=== PATIENT | female | born 1995 | race Two or more races ===

== ENCOUNTER 2016-10-31 08:46 | Outpatient (CLI) | payer MEDICAID ==
[2016-10-31 10:38] LABS: SPECIFIC GRAVITY 1.015 (1.001-1.030); URINE APPEARANCE CLEAR; URINE BILIRUBIN NEGATIVE (NEGATIVE); URINE BLOOD NEGATIVE (NEGATIVE); URINE COLOR YELLOW; URINE GLUCOSE (UA) NEGATIVE (NEGATIVE); URINE LEUKOCYTE ESTERASE TRACE (NEGATIVE); URINE NITRITE NEGATIVE (NEGATIVE); URINE PROTEIN NEGATIVE (NEGATIVE); URINE UROBILINOGEN 1 mg/dL (0-1 mg/dl)
[2016-10-31 10:47] LABS: URINE RBC 0 /hpf
[2016-10-31 10:48] LABS: URINE BACTERIA FEW
[2016-10-31] MEDS ORDERED: MORPHINE SULFATE 10 MG/ML SYRINGE IM ONE (11:40)
== END 2016-10-31 12:40 | disposition home or self-care (01) ==
LOC: FBCOUT 08:46 → FBC 08:47 → FBCOUT 12:40
PROVIDERS: ATTEND Family Medicine
DX: O47.9 False labor, unspecified (principal); Z3A.00 Weeks of gestation of pregnancy not specified
CPT/HCPCS: 96372; 81001; 59025; 81002; J2270; G0463

== ENCOUNTER 2016-11-06 11:25 | Inpatient (IN) | payer MEDICAID ==
[2016-11-06] MEDS ORDERED: IV START KIT ONE (12:03)
[2016-11-06] MEDS ORDERED: OXYTOCIN IN LR 500 ML IV ONE ×2 (12:03→12:04)
[2016-11-06] MEDS ORDERED: OXYTOCIN 10 UNITS/ML VIAL ONE (12:04)
[2016-11-06] MEDS ORDERED: LACTATED RINGERS 1,000 ML ONE (12:04)
[2016-11-06] MEDS ORDERED: LIDOCAINE 1% (PRES FREE) 30 ML VIAL ONE (12:04)
[2016-11-06] MEDS ORDERED: MINERAL OIL 25 ML BOT ONE (12:04)
[2016-11-06] MEDS ORDERED: LIDOCAINE Viscous 2% 15 ML UDCUP ONE (12:04)
[2016-11-06] MEDS ORDERED: PUMP TUBING ONE (12:04)
[2016-11-06] MEDS: LACTATED RINGERS 1,000 ML IV PRN ×2 (12:15→13:37)
[2016-11-06 12:52] LABS: HEMATOCRIT 35.9 % (37.0-47.0); HEMOGLOBIN 11.2 gm/l (12.0-16.0); MEAN CELL VOLUME 77.2 fl (81.0-99.0); MEAN CORPUSCULAR HEMOGLOBIN 24.1 pg (27.0-31.0); MEAN CORPUSCULAR HGB CONC 31.2 g/dl (33.0-37.0); RED CELL DISTRIBUTION WIDTH 16.2 % (11.5-14.5)
[2016-11-06] MEDS ORDERED: EPIDURAL PUMP SET ONE (13:17)
[2016-11-06] MEDS ORDERED: FENTANYL/ROPIVACAINE EPIDURAL 250 ML EP ONE (13:17)
[2016-11-06 13:27] VITALS: BMI 28.7
--- NOTE | 2016-11-06 13:28 | PDOC36 ---
Provider Note Subject: cc: Admission H&P HPI: 21 y.o. year old JOSE A 11/10/2016, by Ultrasound at 39w3d. Presents in active labor. REVIEW OF SYSTEMS GENERAL: No fever or headache EYES: No double or blurry vision. CARDIOVASCULAR: No chest pain. RESPIRATORY: No severe shortness of breath or cough. GASTROINTESTINAL: No nausea or vomiting or right upper quadrant pain. PSYCHIATRIC: No anxiety or depression. PROBLEMS Patient Active Problem List Diagnosis Date Noted Anemia affecting 08/25/2016 04/29/2016 OB HISTORY #: 1, Date: 11/02/10, Sex: Female, Weight: 3.5 kg (7 lb 11.5 oz), GA: 41w0d, Delivery: Vaginal, Spontaneous Delivery, Apgar1: None, Apgar5: None, Living: Yes , Comments: None #: 2, Date: 02/22/15, Sex: Female, Weight: 3.28 kg (7 lb 3.7 oz), GA: 40w0d, Delivery: Vaginal, Spontaneous Delivery, Apgar1: None, Apgar5: None, Living: Yes , Comments: None #: 3, Current Dating: Based On JOSE A GA Dif Comments GA Cyc Lut BC Entered By Date Last Menstrual Period on 01/12/16 (Exact Date) 10/18/16 +3w2d Pt stopped OCP 01/29/16. Unplanned , pt and partner feel good. Yes Rossana Adamson MD 04/29/16 Ultrasound on 04/14/16 11/10/16 Working 10w0d Rossana Adamson MD 04/29/16 Ultrasound on 06/25/16 11/12/16 -2d Anatomy scan at . Grossly normal. Anterior placenta, no previa. Male sex. 20w0d Rossana Adamson MD 06/27/16 PSH No past surgical history SOC HX reports that she has never smoked. She has never used smokeless tobacco. She reports that she does not drink alcohol or use illicit drugs. ALL No Known Allergies MEDICATIONS Current outpatient prescriptions: ferrous sulfate 325 (65 FE) MG tablet, Take 1 tablet (325 mg total) by mouth daily with breakfast., Disp: 30 tablet, Rfl: 11 Vit-Fe Fumarate-FA ( VITAMIN PO), Take by mouth., Disp: , Rfl: PHYSICAL EXAMINATION VITAL SIGNS: BP 113/73 P93 Afebrile Estimated body mass index is 29.60 kg/(m^2) as calculated from the following: Height as of 11/03/16: 1.59 m (5' 2.6"). Weight as of 11/03/16: 74.844 kg (165 lb). Total weight gain is -4.99 kg (-11 lb) FHT: 145 baseline, mod felicia, + accels, no decels Scanlon: q2-3 min SVE: 7/80/-2 GENERAL: No distress CARDIOVASCULAR: Regular rate and rhythm, no murmur RESPIRATORY: Clear to auscultation bilaterally, respiratory effort is nonlabored at rest. GASTROINTESTINAL: Gravid no fundal tenderness LABS & STUDIES A+ Antibody- Rubella Immune Hep B- HIV- GC/Chlamydia- Trep- Hgb 11.2 GBS neg ASSESSMENT 21 y.o. year old JOSE A 11/10/2016, by Ultrasound at 39w3d by PLAN Labor- Expectant management. GBS neg Pain- desires epidural and placing now RH +
[2016-11-06] MEDS ORDERED: ONDANSETRON 4 MG/2ML 2 ML VIAL IV PRN (13:36)
[2016-11-06] MEDS ORDERED: LACTATED RINGERS 1,000 ML IV SCH (13:36)
[2016-11-06] MEDS ORDERED: NALBUPHINE HCL 20 MG/ML AMP IV PRN (13:36)
[2016-11-06] MEDS ORDERED: METOCLOPRAMIDE HCL 5 MG/ML 2ML VIAL IV PRN (13:36)
[2016-11-06] MEDS ORDERED: LACTATED RINGERS 500 ML IV PRN (13:36)
[2016-11-06] MEDS ORDERED: NALOXONE HCL 0.4 MG/ML VIAL IV PRN (13:36)
[2016-11-06] MEDS ORDERED: EPHEDRINE SULFATE 50 MG/ML 1ML VIAL IV PRN (13:36)
[2016-11-06] MEDS ORDERED: DIPHENHYDRAMINE HCL 50 MG/1 ML VIAL IV PRN (13:36)
[2016-11-06] MEDS ORDERED: SODIUM CHLORIDE 0.9% 500 ML IV PRN (13:36)
[2016-11-06] MEDS ORDERED: ROPIVACAINE 0.5% 30 ML VIAL ONE (14:03)
[2016-11-06] MEDS ORDERED: EPIDURAL PROCEDURE TRAY ONE (14:03)
[2016-11-06] MEDS ORDERED: FENTANYL/ROPIVACAINE EPIDURAL 250 ML EP SCH (14:46)
--- NOTE | 2016-11-06 15:34 | PCMDEL ---
Delivery Note - Labor 1st stage (hr/min):: 10 hours 2nd stage (hr/min):: 9 min 3rd stage (hr/min):: 2 min Total (hr/min):: 10 hours Pushed (hr/min):: 9 min - Delivery Delivery (Date): 11/06/16 Delivery (Time): 15:21 Infant Gender: Male Presentation: Cephalic Position: OA Umbilical Cord: 3 Vessel Delayed Cord Clamping:: < 1-2 min 1 Minute Total: 9 5 Minute Total: 9 Placenta:: intact EBL:: 250 Perineum:: Intact Comments:: Presented in active labor and progressed on normal labor curve. Pushed effectively to deliver via without complications. Vigorous infant. Delayed cord clamping x 90 sec. Active third stage with pitocin and fundal massage. Intact. FM well throughout labor course.
[2016-11-06] MEDS ORDERED: BENZOCAINE/MENTHOL 60 APPLIC/BOT TP PRN (15:35)
[2016-11-06] MEDS ORDERED: MAGNESIUM HYDROXIDE 30 ML UDCUP PO PRN (15:35)
[2016-11-06] MEDS ORDERED: HYDROCODONE/ACETAMINOPHEN 5/325MG TABLET PO PRN (15:35)
[2016-11-06] MEDS ORDERED: DOCUSATE SODIUM 100 MG CAPSULE PO PRN (15:35)
[2016-11-06] MEDS ORDERED: LANOLIN 50 APPLIC/7G TUBE TP PRN (15:35)
[2016-11-06] MEDS: IBUPROFEN 800 MG TABLET PO PRN (16:43)
[2016-11-07] MEDS: IBUPROFEN 800 MG TABLET PO PRN (03:08)
[2016-11-07 07:27] LABS: HEMATOCRIT 31.5 % (37.0-47.0)
--- NOTE | 2016-11-07 11:14 | PDOC44 ---
- Subjective Day: 1 Reports Pain Tolerable - Objective Temp Pulse Resp BP Pulse Ox 98.5 F 67 16 110/73 11/07/16 08:00 11/07/16 08:00 11/07/16 08:00 11/07/16 08:00 Lab Results 11/07/16 11/06/16 06:15 12:15 WBC 10.4 RBC 4.65 Hgb 10.0 L 11.2 L Hct 31.5 L 35.9 L Plt Count 214 11/06/16 12:15 MCV 77.2 L MCH 24.1 L MCHC 31.2 L RDW 16.2 H Current Medications Generic Name Dose Route Start Last Admin Trade Name Freq PRN Reason Stop Dose Admin Acetaminophen/Hydrocodone Bitart 1 - 2 tab 11/06/16 15:35 11/06/16 18:08 [place] 5/325 PO 2 tab Q4H PRN Administration Pain (Moderate) Benzocaine/Menthol 1 applic 11/06/16 15:35 Dermoplast TP PRN PRN Patient Comfort Docusate Sodium 100 mg 11/06/16 15:35 Colace PO DAILY PRN Comfort/CONSTIPATION Emollient Ointment 1 applic 11/06/16 15:35 [id number] TP PRN PRN sore nipples Ropivacaine/Fentanyl/NS 250 mls @ 0 mls/hr 11/06/16 14:46 11/06/16 13:57 Fentanyl 2 Mcg/Ml + Ropivacaine 0.125% Ep Bag EP 10 mls/hr EPI PAULETTE Administration Protocol Per Protocol Ibuprofen 800 mg 11/06/16 15:35 11/07/16 03:08 Motrin PO 800 mg Q6H PRN Administration Pain (Mild) Magnesium Hydroxide 30 ml 11/06/16 15:35 Milk Of Magnesia PO BEDTIME PRN Constipation Sodium Chloride 10 ml 11/06/16 15:35 Normal Saline 10ml Flush IV PRN PRN IV Flush Sodium Chloride 10 ml 11/06/16 17:00 Normal Saline 10ml Flush IV Q8HR PAULETTE - Physical Exam General: Afebrile Psych/Mental Status: Bonding Well Neurological: Grossly Intact, Alert, Oriented x 4 Lungs: Clear to Auscultation Bilaterally Cardiovascular: Regular Rate and Rhythm Fundus: Firm, Below Umbilicus Abdomen: Normal Bowel Sounds Skin: Normal Color - Problems:Assessment/Plan (1) Vaginal delivery Status: Acute Assessment/Plan: Doing well, continue routine care Disposition: Stable, Anticipate DC to Home, Anticipate DC Home Tomorrow
--- NOTE | 2016-11-08 09:30 | PDOC39B ---
Hospital Course: ADMIT DATE: 11/06/16 DISCHARGE DATE: 11/08/16 ADMISSION DIAGNOSES: IUP at term PROCEDURES: HISTORY OF PRESENT ILLNESS: 21 year old G3 T2 L2 at 39 weeks 3 days presenting with [facility] HOSPITAL COURSE: The patient was admitted in active labor. Progressed and had uncomplicated . Unremarkable PP course. By day of discharge the patient is ambulating, eating, voiding, and passing flatus without difficulty. Pain is controlled and lochia is appropriate. She is . - Physical Exam Vital Signs: Temp Pulse Resp BP Pulse Ox 98.4 F 91 16 108/57 11/08/16 07:49 11/08/16 07:49 11/08/16 07:49 11/08/16 07:49 General: Afebrile, No Acute Distress Psych/Mental Status: Mood/Affect Appropriate, Judgment/Insight Intact, Bonding Well Neurological: Grossly Intact, Alert, Normal Speech HEENT: Atraumatic, Mucous membr. moist/pink Lungs: Clear to Auscultation Bilaterally Cardiovascular: Regular Rate and Rhythm Breast: Soft Fundus: Firm, Midline, Below Umbilicus Skin: Normal Color, Warm, Dry, Intact, No Rash - Discharge Diagnosis (1) Vaginal delivery Status: Acute Assessment/Plan: Doing well PPD#2 DC home PP precautions Pelvic rest x 6 wks Plans Nexplanon - Discharge Plan Condition: Good Disposition: Home Instruction Forms: Vaginal Discharge Instructions Prescriptions: Docusate Sodium [COLACE 100 MG CAPSULE (F)] 100 mg PO DAILY PRN #60 capsule PRN Reason: Comfort/CONSTIPATION Benzocaine/Menthol [DERMOPLAST SPRAY ([facility])] 1 applic TP PRN PRN #1 bot PRN Reason: Patient Comfort Ibuprofen [IBUPROFEN 800 MG TABLET (F)] 800 mg PO Q6H PRN #60 tablet PRN Reason: Pain (Mild) Lanolin [LANOLIN 7 G TUBE (F)] 1 applic TP PRN PRN #1 tube PRN Reason: Sore Nipples Follow-Up: Rossana Adamson MD [Primary Care Provider] - 11/09/16 (clinic to call to sched, will also need 6 wk PP exam)
[2016-11-08 14:49] VITALS: BP 100/61
[2016-11-09] MEDS ORDERED: LIDOCAINE 5% TP ONE (14:15)
== END 2016-11-08 18:00 | disposition home or self-care (01) | DRG 775 ==
LOC: FBCOUT 11:25 → FBC 11:26 → FBCOUT 12:04 → FBC 12:05
PROVIDERS: ADMIT Family Medicine; ATTEND Family Medicine
PROC: 10E0XZZ Delivery of Products of Conception, External Approach (ICD-10-PCS; principal; 2016-11-06)
PROC: 00HU33Z Insertion of Infusion Device into Spinal Canal, Percutaneous Approach (ICD-10-PCS; 2016-11-06)
DX: O99.02 Anemia complicating childbirth (principal); Z3A.39 39 weeks gestation of pregnancy; Z37.0 Single live birth